=== PATIENT | female | born 1955 | race Caucasian/White ===

== ENCOUNTER 2017-03-15 18:20 | Emergency (ER) | payer OTHER ==
[~2017-03-15] VITALS: Ht 157.5 cm; Wt 77.1 kg
--- NOTE | 2017-03-15 18:36 | NUR ---
L LOWER BACK PAIN X 2 DAYS RADIATING TO L LOWER LEG. AWAITING MD ORDER
[2017-03-15] MEDS ORDERED: DIAZEPAM 5 MG TABLET PO STA (19:22)
[2017-03-15] MEDS ORDERED: KETOROLAC TROMETHAMINE INJ 60 MG/2 ML VIAL IM STA (19:22)
[2017-03-15] MEDS ORDERED: KETOROLAC TROMETHAMINE INJ 30 MG/ML VIAL ONE (19:32)
[2017-03-15] MEDS ORDERED: DIAZEPAM 5 MG TABLET ONE (19:32)
--- NOTE | 2017-03-15 20:26 | NUR ---
Patient discharged to home in stable condition. Written and verbal after care instructions given. Patient verbalizes understanding of instruction.
[2017-03-15 20:27] VITALS: BP 128/65
== END 2017-03-15 20:28 | disposition home or self-care (01) ==
LOC: ER 18:22
DX: M54.42 Lumbago with sciatica, left side (principal); M54.41 Lumbago with sciatica, right side; Z88.0 Allergy status to penicillin; Z88.2 Allergy status to sulfonamides; Z88.8 Allergy status to other drugs, medicaments and biological substances; E11.9 Type 2 diabetes mellitus without complications; I10 Essential (primary) hypertension
CPT/HCPCS: A4606; J1885; Z7610

== ENCOUNTER 2017-05-18 14:36 | Emergency (ER) | payer OTHER ==
[~2017-05-18] VITALS: Ht 160 cm; Wt 74.8 kg
[2017-05-18 14:50] VITALS: BP 151/90
== END 2017-05-18 15:38 | disposition home or self-care (01) ==
LOC: ER 14:37
DX: H92.01 Otalgia, right ear (principal); B34.9 Viral infection, unspecified; E03.9 Hypothyroidism, unspecified; E11.9 Type 2 diabetes mellitus without complications; I10 Essential (primary) hypertension; I25.2 Old myocardial infarction; R13.10 Dysphagia, unspecified; Z88.0 Allergy status to penicillin; Z88.8 Allergy status to other drugs, medicaments and biological substances; Z88.2 Allergy status to sulfonamides; Z91.030 Bee allergy status
CPT/HCPCS: 99283; A4606; Z7610

== ENCOUNTER 2017-07-24 15:56 | Inpatient (IN) | payer OTHER ==
[~2017-07-24] VITALS: Ht 170.2 cm; Wt 75.3 kg
--- NOTE | 2017-07-24 16:10 | NUR ---
BIB RA C/O WEAKNESS AND LOW BLOOD SUGAR:50 IN FIELD, NAD NOTED, VSS, RESP EVEN AND UNLABORED, SKIN WARM AND DRY, WAITING FOR MD GRIMALDO.
[2017-07-24 16:51] LABS: EOSINOPHILS # (AUTO) 0.1 /CMM (0.0-0.7)
[2017-07-24 16:55] LABS: BASOPHILS # (AUTO) 0.4 /CMM (0.0-0.2); BASOPHILS % (AUTO) 2.9 % (0.0-2.0); EOSINOPHILS % (AUTO) 0.7 % (0.0-6.0); HEMATOCRIT 45 % (33-45); HEMOGLOBIN 15.5 g/dL (11.5-14.8); LYMPHOCYTES # (AUTO) 1.9 /CMM (0.8-4.8); LYMPHOCYTES % (AUTO) 14.4 % (20.0-44.0); MEAN CORPUSCULAR HEMOGLOBIN 29 PG (26.0-33.0); MEAN CORPUSCULAR HGB CONC 34 g/dl (31.0-36.0); MEAN CORPUSCULAR VOLUME 84 fL (82-100); MONOCYTES # (AUTO) 0.5 /CMM (0.1-1.30); MONOCYTES % (AUTO) 3.8 % (2.0-12.0); NEUTROPHILS # (AUTO) 10.3 /CMM (1.8-8.9); NEUTROPHILS % (AUTO) 78.2 % (43.0-81.0); PLATELET COUNT (AUTO) 317 /CMM (150-450); RDW COEFFICIENT OF VARIATION 12.8 (11.5-15.0); RED BLOOD CELL COUNT(AUTO) 5.42 MIL/uL (4.0-5.2); WHITE BLOOD COUNT (AUTO) 13.2 K/uL (4.3-11.0)
[2017-07-24 17:04] LABS: CALCIUM, SERUM 9.3 mg/dL (8.5-10.1); CARBON DIOXIDE 27 mmol/L (21-32); CHLORIDE 103 mmol/L (98-107); CREATININE 0.8 mg/dL (0.6-1.3); GLUCOSE 128 mg/dL (74-106); POTASSIUM 3.8 mmol/L (3.5-5.1); SODIUM SERUM 140 mmol/L (136-145); UREA NITROGEN, BLOOD 15 mg/dL (7-18)
[2017-07-24 17:09] LABS: ALANINE AMINOTRANSFERASE 34 U/L (12-78); ALBUMIN 4.1 g/dL (3.4-5.0); ALKALINE PHOSPHATASE 78 U/L (46-116); ASPARTATE AMINOTRANSFERASE 21 U/L (15-37); BILIRUBIN,TOTAL 0.4 mg/dL (0.2-1.0); TOTAL PROTEIN, SERUM 7.8 g/dL (6.4-8.2)
[2017-07-24 17:11] LABS: TROPONIN I < 0.017 ng/mL (0.00-0.056)
[2017-07-24] MEDS ORDERED: LISI-607 PO (18:14)
[2017-07-24] MEDS ORDERED: ESCI10TA PO (18:14)
[2017-07-24] MEDS ORDERED: ATOR10TA PO (18:14)
[2017-07-24] MEDS ORDERED: METO25TA20 PO (18:14)
[2017-07-24] MEDS ORDERED: SITA100T PO (18:14)
[2017-07-24] MEDS ORDERED: ASPI-991 PO (18:14)
[2017-07-24] MEDS ORDERED: GLIP5TAB26 PO (18:14)
--- NOTE | 2017-07-24 18:15 | NUR ---
Patient is resting comfortably in bed with eyes closed. Easily aroused. VSS
[2017-07-24] MEDS ORDERED: LIDOCAINE /MPF 1% VIAL 5 ML VIAL ONE (18:56)
[2017-07-24] MEDS: BLOOD SUGAR DIAGNOSTIC 1 EACH STRIP IN SCH ×3 (19:00→23:04)
[2017-07-24] MEDS ORDERED: DEXTROSE 50%-WATER 50 ML DISP.SYRIN IV PRN (19:00)
[2017-07-24] MEDS ORDERED: INSULIN REGULAR, HUMAN 100 UNIT/ML 3 ML VIAL SQ PRN (19:00)
[2017-07-24] MEDS ORDERED: ACETAMINOPHEN 325 MG TABLET PO PRN (19:00)
[2017-07-24] MEDS ORDERED: ONDANSETRON HCL/PF 4 MG/2 ML VIAL IVP PRN (19:00)
[2017-07-24] MEDS ORDERED: LORAZEPAM 1 MG TABLET PO PRN (19:00)
[2017-07-24] MEDS ORDERED: NITROGLYCERIN 0.4 MG/TAB BOTTLE SL PRN (19:00)
[2017-07-24] MEDS ORDERED: MORPHINE SULFATE INJ 2 MG/ML DISP.SYRIN IV PRN ×2 (19:00)
[2017-07-24] MEDS ORDERED: ZOLPIDEM TARTRATE 5 MG TABLET PO PRN (19:00)
--- NOTE | 2017-07-24 19:29 | NUR ---
REPORT RECEIVED FROM CARMEN RINCON FOR RIA. PT VSS, PT AMBULATORY TO THE BATHROOM WITH STEADY GAIT.
[2017-07-24 20:20] VITALS: BP 147/78
--- NOTE | 2017-07-24 21:01 | NUR ---
TELE/RN RECEIVED PATIENT FROM E.R. AT 2019 AWAKE, ALERT, ORIENTED, COMFORTABLE, NO C/O PAIN, NO DISTRESS NOTED. ADMISSION DONE PER PROTOCOL, REFUSED SKIN CHECK, PLAN OF CARE DISCUSSED AND VERBALIZED UNDERSTANDING AND AGREEMENT. TAUGHT THE USE OF CALL LIGHT AND PLACED AT BEDSIDE WITHIN REACH. WILL MONITOR.
[2017-07-25] VITALS (7 sets, daily range): BP systolic 126–149; BP diastolic 73–81
--- NOTE | 2017-07-25 00:18 | NUR ---
TELE/RN PATIENT APPEAR SLEEPING, APPEAR COMFORTABLE, NO DISTRESS NOTED, CALL LIGHT IN REACH. WILL MONITOR.
[2017-07-25] MEDS: BLOOD SUGAR DIAGNOSTIC 1 EACH STRIP IN SCH ×6 (01:00→20:48)
--- NOTE | 2017-07-25 01:04 | NUR ---
TELE/RN ACCU CHECK AT 01:00 NOT DONE. ACCU CHECK WAS DONE AT 23:00.
[2017-07-25 06:23] LABS: BASOPHILS % (AUTO) 0.4 % (0.0-2.0); EOSINOPHILS # (AUTO) 0.2 /CMM (0.0-0.7); EOSINOPHILS % (AUTO) 1.6 % (0.0-6.0); HEMATOCRIT 44 % (33-45); HEMOGLOBIN 14.6 g/dL (11.5-14.8); LYMPHOCYTES # (AUTO) 3.5 /CMM (0.8-4.8); LYMPHOCYTES % (AUTO) 36.1 % (20.0-44.0); MEAN CORPUSCULAR HEMOGLOBIN 28 PG (26.0-33.0); MEAN CORPUSCULAR HGB CONC 33 g/dl (31.0-36.0); MEAN CORPUSCULAR VOLUME 85 fL (82-100); MONOCYTES # (AUTO) 0.6 /CMM (0.1-1.30); MONOCYTES % (AUTO) 5.9 % (2.0-12.0); NEUTROPHILS # (AUTO) 5.4 /CMM (1.8-8.9); PLATELET COUNT (AUTO) 265 /CMM (150-450); RDW COEFFICIENT OF VARIATION 13.5 (11.5-15.0); RED BLOOD CELL COUNT(AUTO) 5.18 MIL/uL (4.0-5.2); WHITE BLOOD COUNT (AUTO) 9.6 K/uL (4.3-11.0)
[2017-07-25 06:36] LABS: CALCIUM, SERUM 9.1 mg/dL (8.5-10.1); CREATININE 0.9 mg/dL (0.6-1.3); MAGNESIUM 2.2 mg/dL (1.8-2.4); PHOSPHORUS 4.1 mg/dL (2.5-4.9); POTASSIUM 3.8 mmol/L (3.5-5.1)
[2017-07-25 06:38] LABS: INR 0.88 (0.87-1.13); PROTHROMBIN TIME 9.1 SECS (9.5-12.7)
[2017-07-25 06:45] LABS: CHOLESTEROL 180 mg/dL (<200); HDL CHOLESTEROL 48 mg/dL (40-60); LDL 102 mg/dL (0-99); TRIGLYCERIDES 194 mg/dL (30-150)
--- NOTE | 2017-07-25 06:45 | NUR ---
TELE/RN PATIENT AWAKE, ALERT, ORIENTED, COMFORTABLE, NO C/O PAIN, NO DISTRESS NOTED. URINE SPECIMEN FOR UA WAS SENT ALL NEEDS ATTENDED AT THIS TIME. WILL CONTINUE TO MONITOR.
[2017-07-25 07:11] LABS: APPEARANCE,URINE CLEAR (CLEAR); BILIRUBIN,URINE NEGATIVE (NEGATIVE); BLOOD, URINE NEGATIVE Ery/uL (NEGATIVE); COLOR,URINE YELLOW (YELLOW); KETONES,URINE NEGATIVE (NEGATIVE); LEUKOCYTE ESTERASE ,URINE NEGATIVE (NEGATIVE); NITRITE, URINE NEGATIVE (NEGATIVE); PROTEIN,URINE NEGATIVE (NEGATIVE); UGLUCOSE NEGATIVE (NEGATIVE); UROBILINOGEN,URINE 0.2 EU/dL (0.2)
--- NOTE | 2017-07-25 07:30 | NUR ---
DIALYSIS BIOMED TECHNICIAN OPENING NOTE PATIENT IS ALERT AND ORIENTED x4. NO CHEST PAIN AT THIS TIME. NO SOB OR DISTRESS NOTED. CALL LIGHT WITHIN REACH. SAFETY MEASURES IMPLEMENTED. ABLE TO COMMUNICATE NEEDS. TELE MONITOR ON, [id number]. AMBULATORY. BRP. CURRENTLY NPO FOR POSSIBLE STRESS TEST WILL FOLLOW UP WITH CARDIO MD. LEFT AC IV INTACT AND PATENT NO REDNESS OR SWELLING NOTED. NO FLUIDS AT THIS TIME. LABS PENDING AT THIS TIME. ON ROOM AIR, O2 SATURATION AT 98 AT THIS TIME, TOLERATING WELL. WILL CONTINUE TO MONITOR
[2017-07-25] MEDS: ESCITALOPRAM OXALATE (10 MG) 10 MG TABLET PO SCH (08:57)
[2017-07-25] MEDS: ASPIRIN EC 81 MG TABLET.DR PO SCH (08:57)
[2017-07-25] MEDS: LISINOPRIL (10MG) 10 MG TABLET PO SCH (08:58)
[2017-07-25] MEDS: METOPROLOL TARTRATE 25 MG TABLET PO SCH ×2 (08:58→18:13)
[2017-07-25 09:03] LABS: THYROID STIMULATING HORMONE 2.98 uIU/mL (0.358-3.74)
--- NOTE | 2017-07-25 09:50 | NUR ---
COMFORT ADVISOR NOTE PATIENT WILL HAVE NM MYOCARDIAL STRESS TEST TOMORROW 07/26. CONSENT IN CHART
--- NOTE | 2017-07-25 11:44 | NUR ---
DIVISION ORDER ANALYST NOTE PER MD TO MONITOR BLOOD SUGAR AND NOTIFY HER IF BLOOD SUGAR IS MORE THAN 180. PATIENT IS REFUSING INSULIN AT THIS TIME, CONCERNED THAT IT WILL DROP HER BLOOD SUGAR EVEN MORE. SHE STATES SHE TAKES GLIPIZIDE AND JANUVIA AT HOME. BOTH MEDICATIONS HELD AT THIS TIME. WILL CONTINUE TO MONITOR BLOOD SUGAR THROUGHOUT SHIFT.
--- NOTE | 2017-07-25 15:09 | NUR ---
LINE CLEARANCE FOREMAN NOTE PATIENT MOVED FROM 304-2 TO 313-2
[2017-07-25] MEDS: ATORVASTATIN 10 MG TABLET PO SCH (18:13)
--- NOTE | 2017-07-25 18:42 | NUR ---
GRADUATE TEACHING ASSISTANT CLOSING NOTE PATIENT IS ALERT AND ORIENTED x4. NO PAIN AT THIS TIME. NO SOB OR DISTRESS NOTED. CALL LIGHT WITHIN REACH. SAFETY MEASURES IMPLEMENTED. ABLE TO COMMUNICATE NEEDS. IV ACCIDENTALLY PULLED OUT. WILL REINSERT NEW IV. ALL DUE MEDICATIONS GIVEN ORDERED. ALL NURSING CARE NEEDS ORDERED. BLOOD SUGAR MONITORED THROUGHOUT SHIFT. NO INSULIN REQUIRED, PER MD TO CALL IF BS MORE THAN 180. PATIENT HAS STRESS TEST IN MORNING, NPO AFTER MIDNIGHT NO COFFEE OR TEA. WILL ENDORSE TO STORE CLERK CASHIER NURSE FOR RIA
--- NOTE | 2017-07-25 19:30 | NUR ---
RN NOTES PATIENT RECEIVED AMBULATING IN HALLWAY. AO X 3, ABLE TO MAKE NEEDS KNOWN. NO ACUTE DISTRESS NOTED. DENIES ANY PAIN AT THIS TIME. IV SITE PATENT, INTACT; IVF INFUSING ORDERED. SAFETY REMINDERS GIVEN. ON LOW BED WITH BILATERAL UPPER SIDE RAIL. CALL LIGHT WITHIN EASY REACH.
[2017-07-26] MEDS: BLOOD SUGAR DIAGNOSTIC 1 EACH STRIP IN SCH ×6 (01:23→21:53)
--- NOTE | 2017-07-26 06:28 | NUR ---
RN NOTES PATIENT ASLEEP, EASILY AROUSABLE. RESPIRATIONS EVEN. NO SIGNS OF PAIN NOTED. NO SYMPTOMS OF HYPER/HYPOGLYCEMIA. NEEDS ATTENDED. SAFETY PRECAUTIONS AND COMFORT MEASURES GIVEN. WILL GIVE REPORT TO DAY SHIFT FOR CONTINUITY OF CARE.
--- NOTE | 2017-07-26 07:48 | NUR ---
MS RN OPENING NOTE PATIENT IS ALERT AND ORIENTED x4. NO PAIN AT THIS TIME. NO SOB OR DISTRESS NOTED. CALL LIGHT WITHIN REACH. SAFETY MEASURES IMPLEMENTED. ABLE TO COMMUNICATE NEEDS. BRP. AMBULATORY. CURRENTLY NPO FOR STRESS TEST THIS MORNING AND FOR UPPER ENDOSCOPY PROCEDURE. CONSENTS OBTAINED AND IN CHART. LEFT HAND IV INTACT AND PATENT NO REDNESS OR SWELLING NOTED. NO IV FLUIDS RUNNING AT THIS TIME. BLOOD SUGAR TO BE MONITORED THROUGHOUT SHIFT. PER MD TO CALL IF BS ABOVE 180. ROOM AIR TOLERATING WELL AT 98%. WILL CONTINUE TO MONITOR PATIENT
[2017-07-26 08:00] VITALS: BP 130/77
[2017-07-26] MEDS: ESCITALOPRAM OXALATE (10 MG) 10 MG TABLET PO SCH ×2 (09:00→13:38)
[2017-07-26] MEDS: LISINOPRIL (10MG) 10 MG TABLET PO SCH (09:00)
[2017-07-26] MEDS: METOPROLOL TARTRATE 25 MG TABLET PO SCH ×2 (09:00→17:18)
[2017-07-26] MEDS: ASPIRIN EC 81 MG TABLET.DR PO SCH (09:00)
[2017-07-26] MEDS ORDERED: IV D5/ 0.9% NACL 1,000 ML IV ONE (11:00)
--- NOTE | 2017-07-26 13:30 | NUR ---
RN NOTE PATIENT WAS NPO THIS MORNING AND AFTERNOON FOR STRESS TEST. NOW ABLE TO EAT. PATIENT REQUESTING FOR LEXAPRO. SPOKE WITH PHARMACY IN REGARDS TO GIVING LEXAPRO, IT WAS OKAY TO GIVE. WILL CONTINUE TO MONITOR PATIENT
[2017-07-26 16:00] VITALS: BP 137/84
[2017-07-26] MEDS: ATORVASTATIN 10 MG TABLET PO SCH (17:18)
[2017-07-26] MEDS ORDERED: PEG 3350/NA SULF,BICARB,CL/KCL 4,000 ML BOTTLE PO ONE (18:00)
--- NOTE | 2017-07-26 18:24 | NUR ---
MS RN CLOSING NOTE PATIENT IS ALERT AND ORIENTED x4. NO PAIN AT THIS TIME. NO SOB OR DISTRESS NOTED. CALL LIGHT WITHIN REACH AT ALL TIMES. SAFETY MEASURES IMPLEMENTED. ALL DUE MEDICATIONS GIVEN ORDERED. ALL NURSING CARE NEEDS ATTENDED TO. ABLE TO COMMUNICATE NEEDS. IV ON LEFT HAND INTACT AND PATENT NO REDNESS OR SWELLING NOTED. BLOOD SUGAR MONITORED THROUGHOUT SHIFT, NO INSULIN GIVEN PER MD. PREPPING FOR EGD AND COLONOSCOPY TOMORROW WITH DR. SANCHEZ PER DR. BENITEZ. CONSENTS IN CHART AT THIS TIME. HAS LABS IN THE MORNING. WILL ENDORSE TO TIRE TESTER NURSE FOR RIA
--- NOTE | 2017-07-26 19:30 | NUR ---
MS/RN RECEIVE PATIENT AWAKE, ALERT, ORIENTED, COMFORTABLE, NO C/O PAIN, NO DISTRESS NOTED, BOWEL PREP FOR COLONOSCOPY IN A.M. IS IN PROGRESS, PLAN OF CARE DISCUSSED FOR COLONOSCOPY, VERBALIZED UNDERSTANDING. WILL MONITOR.
[2017-07-26 20:00] VITALS: BP 137/82
--- NOTE | 2017-07-26 23:59 | NUR ---
MS/RN PATIENT IS SLEEPING AT THIS TIME, AROUSABLE, APPEAR COMFORTABLE, NO DISTRESS NOTED, CALL LIGHT IN REACH. WILL CONTINUE TO MONITOR.
[2017-07-27] VITALS (9 sets, daily range): BP systolic 127–147; BP diastolic 77–91
[2017-07-27] MEDS: BLOOD SUGAR DIAGNOSTIC 1 EACH STRIP IN SCH ×6 (01:57→22:55)
--- NOTE | 2017-07-27 03:51 | NUR ---
MS/RN PATIENT WAS MOVED TO [facility]- PER PATIENT REQUEST. PER PATIENT SHE COULD NOT SLEEP BECAUSE HER ROOM MATE IS NOISY.
--- NOTE | 2017-07-27 06:46 | NUR ---
MS/RN STOOL AT THIS TIME IS MOSTLY LIQUID BUT STILL WITH SMALL SOLID PARTICLES, AND ALSO THE PATIENT TOOK 2 CUPS OF GOLYTELY AROUND 06:10. CALLED [facility] MESSAGE.
--- NOTE | 2017-07-27 06:48 | NUR ---
MS/RN DR. SANCHEZ CALLED BACK WITH ORDERS TO GIVE FLEET ENEMA X 2..
[2017-07-27] MEDS ORDERED: NA PHOS,M-B/NA PHOS,DI-BA 1 EA ENEMA RC PRN (07:00)
--- NOTE | 2017-07-27 07:27 | NUR ---
MS RN OPENING NOTES PATIENT RECEIVED AWAKE IN BED IN NO ACUTE SIGNS OF DISTRESS. A/O X4, AMBULATORY AND VERBALLY RESPONSIVE, NO C/O PAIN OR DISCOMFORTS AT THIS TIME. PT FOR EGD AND COLONOSCOPY TODAY, NPO MAINTAINED. ON ROOM AIR, BREATHING EVEN AND UNLABORED. LEFT HAND IV ACCESS INTACT AND PATENT, SL ONLY. SAFETY MEASURES IN PLACED. BED IN LOW/LOCKED POSITION WITH SIDE-RAILS UP X2, CALL LIGHT AND BEDSIDE TABLE WITHIN REACH. WILL CONTINUE TO MONITOR PATIENT ACCORDINGLY.
[2017-07-27 07:46] LABS: BASOPHILS % (AUTO) 0.3 % (0.0-2.0); EOSINOPHILS # (AUTO) 0.2 /CMM (0.0-0.7); EOSINOPHILS % (AUTO) 1.9 % (0.0-6.0); HEMATOCRIT 44 % (33-45); LYMPHOCYTES # (AUTO) 3.1 /CMM (0.8-4.8); MEAN CORPUSCULAR HEMOGLOBIN 28 PG (26.0-33.0); MEAN CORPUSCULAR HGB CONC 34 g/dl (31.0-36.0); MEAN CORPUSCULAR VOLUME 84 fL (82-100); MONOCYTES # (AUTO) 0.6 /CMM (0.1-1.30); MONOCYTES % (AUTO) 6.1 % (2.0-12.0); NEUTROPHILS # (AUTO) 5.8 /CMM (1.8-8.9); NEUTROPHILS % (AUTO) 59.7 % (43.0-81.0); PLATELET COUNT (AUTO) 264 /CMM (150-450); RDW COEFFICIENT OF VARIATION 13.5 (11.5-15.0); RED BLOOD CELL COUNT(AUTO) 5.28 MIL/uL (4.0-5.2); WHITE BLOOD COUNT (AUTO) 9.7 K/uL (4.3-11.0)
[2017-07-27 08:00] LABS: CALCIUM, SERUM 9.2 mg/dL (8.5-10.1); CREATININE 0.8 mg/dL (0.6-1.3); MAGNESIUM 2.2 mg/dL (1.8-2.4); PHOSPHORUS 3.3 mg/dL (2.5-4.9)
[2017-07-27] MEDS: ASPIRIN EC 81 MG TABLET.DR PO SCH (09:00)
[2017-07-27] MEDS: LISINOPRIL (10MG) 10 MG TABLET PO SCH (09:00)
[2017-07-27] MEDS: METOPROLOL TARTRATE 25 MG TABLET PO SCH ×2 (09:00→17:25)
--- NOTE | 2017-07-27 09:51 | NUR ---
RN NOTES PT'S ORAL MEDS NOT ADMINISTERED THIS MORNING. PT IS NPO AND SCHEDULED FOR COLONOSCOPY AND EGD TODAY. WILL CONTINUE TO MONITOR.
--- NOTE | 2017-07-27 10:10 | NUR ---
RN NOTES PT TRANSPORTED TO SURGERY ACCOMPANIED BY 2 O.R. STAFF VIA HER BED FOR COLONOSCOPY AND EGD.
--- NOTE | 2017-07-27 11:45 | NUR ---
RN NOTES PT CAME BACK FROM SURGERY S/P EGD AND COLONOSCOPY. ALERT AND ORIENTED X 4. VERBALLY RESPONSIVE WITH NO C/O PAIN VOICED. S/P VITAL SIGNS CHECKED: BP 137/77MMHG, P 85, R 20 T 98.2F AND SP02 100%. DR SANCHEZ ORDERED TO RESUMED DIET. WILL CONTINUE TO MONITOR
--- NOTE | 2017-07-27 12:54 | NUR ---
RN NOTES PATIENT S/P COLONOSCOPY AND EGD BY DR SANCHEZ WITH RECOMMENDATION TO AVOID NSAID AND TO GIVE PROTONIX 40MG PO DAILY. DR SANTIAGO ON UNIT AND MADE AWARE AND SAID OK. WILL CONTINUE TO MONITOR.
[2017-07-27] MEDS ORDERED: ESCITALOPRAM OXALATE (10 MG) 10 MG TABLET PO ONE (14:00)
[2017-07-27] MEDS: ATORVASTATIN 10 MG TABLET PO SCH (17:25)
--- NOTE | 2017-07-27 19:33 | NUR ---
MS RN CLOSING NOTES PATIENT IN BED RESTING AT MODERATE HIGH BACKREST. A/O X4, AMBULATORY AND VERBALLY RESPONSIVE. S/P EGD AND COLONOSCOPY, STABLE AT THIS TIME. ON ROOM AIR, BREATHING EVEN AND UNLABORED. LEFT HAND IV ACCESS INTACT AND PATENT, SL ONLY. ALL SAFETY MEASURES KEPT IN PLACED. BED IN LOW/LOCKED POSITION WITH SIDE-RAILS UP X2, CALL LIGHT AND BEDSIDE TABLE WITHIN REACH. ALL NEEDS AND CARE ATTENDED WELL. ENDORSED TO GAS TORCH BRAZIER NURSE FOR RIA..
--- NOTE | 2017-07-27 20:00 | NUR ---
MS2 RN NOTES RECEIVED AMBULATORY,DENIES CHEST PAIN,CLAIMED SHE'S GOING HOME TOMORROW.INSISTED TO HAVE A SHOWER TONIGHT WHICH SHE DID AT THIRD FLOOR,CAME BACK TO SECOND FLOOR IN STABLE CONDITION.SALINE LOCK LEFT HAND INTACT AND PATENT.CALL LIGHT IN REACH,NEEDS ANTICIPATED.
--- NOTE | 2017-07-27 21:00 | NUR ---
MS2 RN NOTES ACCUCHECK BLOOD SUGAR CHECK 163,REFUSED INSULIN COVERAGE.
[2017-07-28] MEDS: BLOOD SUGAR DIAGNOSTIC 1 EACH STRIP IN SCH ×4 (01:00→12:29)
--- NOTE | 2017-07-28 01:00 | NUR ---
MS2 RN NOTES SOUND ASLEEP,UNABLE TO CHECK BLOOD SUGAR THIS TIME
--- NOTE | 2017-07-28 05:30 | NUR ---
MS RN NOTES ACCU-CHECK BLOOD SUGAR CHECK 122,NO INSULIN COVERAGE.
--- NOTE | 2017-07-28 06:13 | NUR ---
MS RN NOTES FAIRLY RESTED AFTER HAVING SHOWER AT NIGHT,SLEPT WELL MOST OF THE NIGHT.DENIES CHEST PAIN,MORNING BLOOD DRAW DONE.PATIENT CLAIMED SHE MIGHT BE GOING HOME TODAY.IN NO ACUTE DISTRESS,NEEDS ATTENDED.WILL ENDORSE TO DAY NURSE FOR RIA.
[2017-07-28 06:26] LABS: BASOPHILS % (AUTO) 0.5 % (0.0-2.0); EOSINOPHILS # (AUTO) 0.2 /CMM (0.0-0.7); EOSINOPHILS % (AUTO) 1.7 % (0.0-6.0); HEMATOCRIT 43 % (33-45); HEMOGLOBIN 14.4 g/dL (11.5-14.8); LYMPHOCYTES # (AUTO) 3.2 /CMM (0.8-4.8); LYMPHOCYTES % (AUTO) 36.5 % (20.0-44.0); MEAN CORPUSCULAR HEMOGLOBIN 28 PG (26.0-33.0); MEAN CORPUSCULAR HGB CONC 34 g/dl (31.0-36.0); MEAN CORPUSCULAR VOLUME 84 fL (82-100); MONOCYTES # (AUTO) 0.5 /CMM (0.1-1.30); MONOCYTES % (AUTO) 5.5 % (2.0-12.0); NEUTROPHILS # (AUTO) 4.8 /CMM (1.8-8.9); NEUTROPHILS % (AUTO) 55.8 % (43.0-81.0); PLATELET COUNT (AUTO) 269 /CMM (150-450); RDW COEFFICIENT OF VARIATION 13.5 (11.5-15.0); WHITE BLOOD COUNT (AUTO) 8.7 K/uL (4.3-11.0)
[2017-07-28 06:41] LABS: CALCIUM, SERUM 8.8 mg/dL (8.5-10.1); CREATININE 0.7 mg/dL (0.6-1.3); MAGNESIUM 2.1 mg/dL (1.8-2.4); PHOSPHORUS 4.1 mg/dL (2.5-4.9); POTASSIUM 3.7 mmol/L (3.5-5.1)
[2017-07-28] MEDS ORDERED: PANTOPRAZOLE 40 MG TABLET.DR PO SCH (07:30)
[2017-07-28 08:00] VITALS: BP 126/82
[2017-07-28] MEDS: LISINOPRIL (10MG) 10 MG TABLET PO SCH (08:36)
[2017-07-28] MEDS: ESCITALOPRAM OXALATE (10 MG) 10 MG TABLET PO SCH (08:36)
[2017-07-28 08:37] VITALS: BP 126/82
[2017-07-28] MEDS: METOPROLOL TARTRATE 25 MG TABLET PO SCH (08:37)
[2017-07-28] MEDS ORDERED: PANT40TA2 PO (10:35)
--- NOTE | 2017-07-28 13:02 | NUR ---
DISCHARGE NOTES DISCHARGE INSTRUCTIONS GIVEN TO THE PATIENT AND ABLE TO UNDERSTAND. ALL PAPERWORK SIGNED AND BELONGINGS ACCOUNTED FOR. IV REMOVED AND PRESSURE APPLIED. NO BLEEDING NOTED AT THE SITE. PATIENT GIVEN INFORMATION ON HOW TO FOLLOW UP TO GET PATHOLOGY REPORTS AND FOR MD FOLLOW UP. FLU SHOT NOT GIVEN DC PATIENT REFUSES. PATIENT LEFT IN STABLE CONDITION, NO SOB OR DISTRESS, DENIES PAIN. DISCHARGED TO HOME WITH FRIEND.
== END 2017-07-28 12:50 | disposition home or self-care (01) | DRG 241 ==
LOC: ER 15:59 → TELE 19:45 → MED 07-25 17:30 → MEDSG2 07-27 20:30
PROVIDERS: ADMIT Internal Medicine; ATTEND Internal Medicine
DX: K25.9 Gastric ulcer, unspecified as acute or chronic, without hemorrhage or perforation (principal); E11.649 Type 2 diabetes mellitus with hypoglycemia without coma; I10 Essential (primary) hypertension; E78.5 Hyperlipidemia, unspecified; I25.10 Atherosclerotic heart disease of native coronary artery without angina pectoris; Z79.4 Long term (current) use of insulin; Z79.84 Long term (current) use of oral hypoglycemic drugs; I25.2 Old myocardial infarction; K21.9 Gastro-esophageal reflux disease without esophagitis; M19.90 Unspecified osteoarthritis, unspecified site; Z86.010 Personal history of colon polyps; E03.9 Hypothyroidism, unspecified; Z88.0 Allergy status to penicillin; Z88.2 Allergy status to sulfonamides; R07.9 Chest pain, unspecified; K64.8 Other hemorrhoids; K57.90 Diverticulosis of intestine, part unspecified, without perforation or abscess without bleeding; K62.1 Rectal polyp; E04.2 Nontoxic multinodular goiter; T38.3X5A Adverse effect of insulin and oral hypoglycemic [antidiabetic] drugs, initial encounter; Y92.009 Unspecified place in unspecified non-institutional (private) residence as the place of occurrence of the external cause
CPT/HCPCS: 36415; 71010-TC; 80048-TC; 80061-TC; 80076-TC; 81000-TC; 82150-TC; 82962-TC; 83690-TC; 83735-TC; 84100-TC; 84439-TC; 84443-TC; 84484-TC; 85025-TC; 85610-TC; 85730-TC; 87081-TC; 88305-TC; 88313-TC; 88342; 93307-TC; A9502; J1815; J2704; J3490; Z7610

== ENCOUNTER 2018-01-12 17:08 | Emergency (ER) | payer OTHER ==
[~2018-01-12 17:08] MED LIST: ASPI-1152 PO; ATOR10TA PO; ESCI10TA PO; LISI-607 PO; METO25TA20 PO; PANT40TA2 PO; SITA100T PO
[2018-01-12] MEDS ORDERED: IOHEXOL-350 100 ML VIAL IV ONE (18:12)
[2018-01-12] MEDS ORDERED: INSULIN LISPRO/ASPART 100 UNIT/ML CARTRIDGE SQ STA (18:12)
[2018-01-12] MEDS ORDERED: IV NS 0.9% 250 ML IV ONE (18:12)
[2018-01-12] MEDS ORDERED: ONDANSETRON HCL/PF 4 MG/2 ML VIAL ONE (18:34)
[2018-01-12] MEDS ORDERED: MORPHINE SULFATE INJ 4 MG/ML DISP.SYRIN ONE (18:35)
[2018-01-12] MEDS ORDERED: IV NS 0.9% 500 ML BAG IV ONE (19:00)
[2018-01-12] MEDS ORDERED: ONDANSETRON HCL/PF - ER 4 MG/2 ML VIAL IV ONE (19:00)
[2018-01-12] MEDS ORDERED: MORPHINE SULFATE INJ 2 MG/ML DISP.SYRIN IV ONE (19:00)
== END 2018-01-12 20:14 | disposition short-term general hospital (02) ==
DX: R58 Hemorrhage, not elsewhere classified (principal); E11.65 Type 2 diabetes mellitus with hyperglycemia; I72.9 Aneurysm of unspecified site; K57.30 Diverticulosis of large intestine without perforation or abscess without bleeding; E03.9 Hypothyroidism, unspecified; E78.5 Hyperlipidemia, unspecified; E86.0 Dehydration; I10 Essential (primary) hypertension; I25.2 Old myocardial infarction; K76.0 Fatty (change of) liver, not elsewhere classified; Z79.4 Long term (current) use of insulin; Z79.82 Long term (current) use of aspirin; Z88.0 Allergy status to penicillin; Z88.2 Allergy status to sulfonamides; Z88.8 Allergy status to other drugs, medicaments and biological substances